=== PATIENT | female | born 1990 | race Caucasian/White ===

== ENCOUNTER 2021-05-17 09:39 | Outpatient (CLI) | payer BC | END 2021-05-17 09:40 | disposition home or self-care (01) | LOC: ULT 09:39 | PROVIDERS: ATTEND Family Medicine | DX: R09.89 Other specified symptoms and signs involving the circulatory and respiratory systems (principal) | CPT/HCPCS: 93880 ==

== ENCOUNTER 2021-06-12 08:57 | Outpatient (CLI) | payer BC | END 2021-06-12 08:58 | disposition home or self-care (01) | LOC: BICRAD 08:57 | PROVIDERS: ATTEND Physician Assistant | DX: J06.9 Acute upper respiratory infection, unspecified (principal) | CPT/HCPCS: 71046 ==

== ENCOUNTER 2021-09-16 08:55 | Outpatient (CLI) | payer BC | END 2021-09-16 08:56 | disposition home or self-care (01) | LOC: MRI 08:55 | PROVIDERS: ATTEND Physician Assistant | DX: R09.89 Other specified symptoms and signs involving the circulatory and respiratory systems (principal) | CPT/HCPCS: 70549 ==

== ENCOUNTER 2023-04-21 15:27 | Outpatient (CLI) | payer BC ==
[2023-04-21 16:33] LABS: Hematocrit 38.8 % (34.9-44.5)
[2023-04-21 16:58] LABS: BHCG - Serum Negative (NEGATIVE); Pregs Control Background? CLEAR/WHITE (CLR/WHITE); Pregs Control Bar Appear? YES (CONTROL BAR)
== END 2023-04-21 15:28 | disposition home or self-care (01) ==
LOC: LABBT 15:27
PROVIDERS: ATTEND Otolaryngology Plastic Surgery within the Head & Neck
DX: Z01.812 Encounter for preprocedural laboratory examination (principal); J34.2 Deviated nasal septum; J34.3 Hypertrophy of nasal turbinates; J32.0 Chronic maxillary sinusitis; J32.1 Chronic frontal sinusitis; J32.3 Chronic sphenoidal sinusitis; J32.2 Chronic ethmoidal sinusitis
CPT/HCPCS: 84703; 85014

== ENCOUNTER 2023-04-22 07:27 | Day surgery (SDC) | payer BC ==
[2023-04-21 16:15] VITALS: BMI 34.2
[2023-04-22] MEDS ORDERED: Oxymetazoline HCl 0.05% (30 ML BOT) ONE ×2 (08:35→09:39)
[2023-04-22] MEDS ORDERED: Lidocaine 1% (PF) 30 ML VIAL ONE (09:39)
[2023-04-22] MEDS ORDERED: EPINEPHrine 1 MG/ML VIAL ONE (09:39)
[2023-04-22] MEDS ORDERED: Bacitracin Zinc Ointment 30 gm TUBE ONE (09:39)
[2023-04-22] MEDS ORDERED: Famotidine/PF 20 mg/2ml Vial ONE (10:01)
[2023-04-22] MEDS ORDERED: fentaNYL 50 mcg/mL 1 mL Vial ONE ×3 (10:08→12:10)
[2023-04-22] MEDS ORDERED: PROPOFOL 20 ML ONE ×2 (10:08→10:33)
[2023-04-22] MEDS ORDERED: Lidocaine 2% PF 5 ML VIAL ONE (10:09)
[2023-04-22] MEDS ORDERED: Dexamethasone 20 MG/5 ML VIAL ONE (10:21)
[2023-04-22] MEDS ORDERED: Ondansetron PF 4 MG/2 ML Vial ONE ×2 (10:21→10:40)
[2023-04-22] MEDS ORDERED: Lidocaine 1% PF 5 ML VIAL ONE (10:21)
[2023-04-22] MEDS ORDERED: PROPOFOL 200 MG/20 ML VIAL ONE (10:21)
[2023-04-22] MEDS ORDERED: Dexamethasone 4 mg/ml Vial ONE (10:40)
[2023-04-22] MEDS ORDERED: fentaNYL PF 100 MCG/2 ML SYRINGE ONE (11:45)
[2023-04-22] MEDS ORDERED: Labetalol HCl 100 MG/20 ML VIAL ONE (11:53)
[2023-04-22] MEDS ORDERED: Hydrocodone-Acetamin 15 ML UDCUP ONE (13:01)
== END 2023-04-22 14:20 | disposition home or self-care (01) ==
LOC: SDC 07:27
PROVIDERS: ATTEND Otolaryngology Plastic Surgery within the Head & Neck
PROC: 09TU8ZZ Resection of Right Ethmoid Sinus, Via Natural or Artificial Opening Endoscopic (ICD-10-PCS; principal; 2023-04-22)
PROC: 09TW8ZZ Resection of Right Sphenoid Sinus, Via Natural or Artificial Opening Endoscopic (ICD-10-PCS; 2023-04-22)
PROC: 09TX8ZZ Resection of Left Sphenoid Sinus, Via Natural or Artificial Opening Endoscopic (ICD-10-PCS; 2023-04-22)
PROC: 09TR8ZZ Resection of Left Maxillary Sinus, Via Natural or Artificial Opening Endoscopic (ICD-10-PCS; 2023-04-22)
PROC: 09TQ8ZZ Resection of Right Maxillary Sinus, Via Natural or Artificial Opening Endoscopic (ICD-10-PCS; 2023-04-22)
PROC: 09TT8ZZ Resection of Left Frontal Sinus, Via Natural or Artificial Opening Endoscopic (ICD-10-PCS; 2023-04-22)
PROC: 09TV8ZZ Resection of Left Ethmoid Sinus, Via Natural or Artificial Opening Endoscopic (ICD-10-PCS; 2023-04-22)
PROC: 09TS8ZZ Resection of Right Frontal Sinus, Via Natural or Artificial Opening Endoscopic (ICD-10-PCS; 2023-04-22)
DX: J34.2 Deviated nasal septum (principal); J34.3 Hypertrophy of nasal turbinates; J32.0 Chronic maxillary sinusitis; J32.1 Chronic frontal sinusitis; J32.2 Chronic ethmoidal sinusitis; J32.3 Chronic sphenoidal sinusitis; J45.909 Unspecified asthma, uncomplicated; K21.9 Gastro-esophageal reflux disease without esophagitis; E78.00 Pure hypercholesterolemia, unspecified; H69.93 Unspecified Eustachian tube disorder, bilateral; F32.A Depression, unspecified; D64.9 Anemia, unspecified; Z79.899 Other long term (current) drug therapy
CPT/HCPCS: J0171; J1100; J2001; J2405; J2704; J3010; S0028